=== PATIENT | female | born 1980 | race Caucasian/White ===

== ENCOUNTER → 2016-12-24 | Outpatient (CLI) | payer BC ==
[~2016-12-24] MED LIST: TRET15GE EXT; VALA500T60 PO
--- NOTE | 2016-12-24 17:28 | DIAGNOSTIC IMAGING REPORT ---
MRI OF THE LEFT FOOT WITHOUT IV CONTRAST CLINICAL HISTORY: Chronic left foot and heel pain. No reported history of trauma. COMPARISON STUDY: No priors. TECHNIQUE: MRI of the left foot is performed utilizing various T1 and T2-weighted sequences in the axial, sagittal, and coronal planes. IV contrast was not administered for this examination. Note that interpretation is suboptimal without plain film correlate. FINDINGS: There is no MRI evidence of fracture or osteonecrosis. No osteochondral defect is identified in the talar dome. There is no ankle joint effusion. There is mild thickening with increased signal identified in the plantar fascia, greatest in the medial bundle. Mild surrounding soft tissue edema is identified and the appearance is consistent with plantar fasciitis. There is mild reactive marrow edema seen in the calcaneus at the insertion of the plantar fascia. The Achilles tendon is normal in morphology and signal intensity. The anterior, posterior, and peroneal tendons are intact. There is no evidence of Lisfranc injury. A benign-appearing cystic focus is incidentally noted within the proximal shaft of the third metatarsal. Mild cystic degenerative change is present in the first metatarsal head. The surrounding musculature is normal in bulk and signal intensity. IMPRESSION: 1. Findings are consistent with plantar fasciitis, greatest involving the medial bundle. 2. There is mild surrounding soft tissue edema, as well as reactive marrow edema at the calcaneal insertion. 3. There is mild cystic degenerative change present in the first metatarsal head. 4. A benign-appearing cystic focus is incidentally noted in the proximal shaft of the third metatarsal. Radiographic correlation is recommended. Dictated: 12/24/2016 4:46 PM Transcribed: 12/24/2016 5:28 PM Ron Electronically signed by: Elfego Aly M.D. 12/24/2016 5:48 PM Dictated Date/Time: 12/24/2016 4:46 PM
== END | disposition home or self-care (01) ==
LOC: C.MRIBC 15:26
PROVIDERS: ATTEND Orthopaedic Surgery
DX: M79.672 Pain in left foot (principal)